=== PATIENT | male | born 1970 | race Caucasian/White ===

== ENCOUNTER → 2020-09-09 18:26 | Outpatient (CLI) | payer OTHER, SELFPAY | PROVIDERS: PCP Internal Medicine Adolescent Medicine; Visit Provider Internal Medicine Adolescent Medicine | DX: Z01.818 Encounter for other preprocedural examination (principal); Z20.822 Contact with and (suspected) exposure to COVID-19 | CPT/HCPCS: U0003 ==

== ENCOUNTER 2024-03-06 14:41 | Outpatient (CLI) | payer OTHER, SELFPAY ==
--- NOTE | 2024-03-06 14:42 | CT_ITS ---
FINAL REPORT TECHNIQUE: Thin section axial CT images of the facial bones and sinuses were obtained without contrast. Coronal and sagittal reformatted images were also obtained. This study was performed with techniques to keep radiation doses as low as reasonably achievable, (ALARA). Individualized dose reduction techniques using automated exposure control or adjustment of mA and/or kV according to the patient's size were employed. CLINICAL HISTORY: sinusitis COMPARISON: None FINDINGS: There is moderate mucosal thickening in the paranasal sinuses. No fluid levels are identified. There is soft tissue obstructing the ostiomeatal units of the maxillary sinuses bilaterally. There is nasal septal deviation to the right with a right septal spur. No fracture or acute bony abnormality is identified. IMPRESSION: Moderate mucosal thickening of the paranasal sinuses without air-fluid levels. Soft tissue obstructs the ostiomeatal units of the maxillary sinus bilaterally. Right septal deviation with a right septal spur. Reviewed, Interpreted and Dictated by Khris Henry III, MD Transcribed by Shikha Weston Authenticated and [facility]
== END 2024-03-06 23:59 | disposition home or self-care (01) ==
LOC: RAD 14:42
PROVIDERS: PCP Family Medicine; Visit Provider Nurse Practitioner
DX: R09.81 Nasal congestion (principal)
CPT/HCPCS: 70486

== ENCOUNTER 2024-06-10 07:41 | Outpatient (CLI) | payer OTHER, SELFPAY ==
--- NOTE | 2024-06-10 | ECG_ITS ---
APPROVED REPORT Exam: Resting ECG HR:67 bpm ECG Measurements Heart Rate 67 AXES MD 167 P 57 QRSd 98 QRS 23 QT 373 T 51 QTc 389 Conclusion SINUS RHYTHM NORMAL ECG UNCONFIRMED REPORT Electronically signed by : Jamison Crowe MD 06/11/2024 10:29:41
--- OUTSIDE RECORDS SUMMARY | 2024-06-10 07:44 | XMS_ITS | Patient Health Record ---
Author Organization [facility] D [facility]LOY[facility] Address [address] [place] [address] Care Team Providers Care Presser Cotton Ginning Name Role Phone Jamison Crowe Primary Care Provider Reason For Referral No Information Medications Medication SIG (Take, Route, Frequency, Duration) Notes Start Date End Date Status albuterol 90 mcg/inh 2 puff(s) inhaled 4 times a day Active Levocetirizine Dihydrochloride 5 mg 1 tab(s) orally once a day (in the evening) for 90 days Active Montelukast Sodium 10 mg 1 tab(s) orally once a day for 90 days Active Immunizations Vaccine Route Administration Date Status Comme nts FLUZONE 6MO - OLDER IM Intramuscular 05/01/2019 Administer ed Boostrix IM Intramuscular 05/01/2019 Administered Adacel (Tdap) Unknown 09/13/2012 Administered Problems Problem Type SNOMED Code ICD Code Onset Dates Problem Status W/U Status Risk Notes Problem 09723487 Chronic allergic rhinitis (J30.9) Active confirmed Problem 118330642 Asthma exacerbation, mild (J45.901) Active confirmed Problem 072790618 Moderate persistent asthma without complication (J45.40) Active confirmed Problem 62496201 High blood pressure (I10) Active confirmed Problem 43273091400789983 Carpal tunnel syndrome on both sides (G56.03) Active confirmed Plan Of Treatment Pending Test Test Name Order Date VENIPUNCT, ROUTINE* 06/07/2015 M-COVID PCR SINGLE RAPID 09/09/2020 Insurance Providers Payer Name Payer Address Payer Phone Subscriber Number Group Number Insured Name Patient Relationship to Insured Coverage Start Date Coverage End Date [facility] [address] [address] [place] [address] [id number] Farhan Castelan Self - patient is the insured Medications Administered Medication Instructions Date of Administration Dosage Notes Kenalog 40mg 01/19/2017 40 mg Triamcinolone Acetonide 40mg Injection 08/07/2019 1 mL Kenalog 02/16/2014 1 Kenalog 08/20/2015 1 mL Medical (General) History Medical History History ICD Code High blood pressure Mild asthma and chronic allergies Surgical History Surgery Date(Month/Year) bone marrow donor 2008 Hospitalization History Reason Date(Month/Year) above
--- OUTSIDE RECORDS SUMMARY | 2024-06-10 07:45 | XMS_ITS | Patient Health Record ---
[facility] Address [address] [place] [address] Care Team Providers Care Rn Managed Care Name Role Phone FLAVIA NUNES [phone] Reason For Referral No Information Medications Medication SIG (Take, Route, Frequency, Duration) Notes Start Date End Date Status Singulair 10 MG Orally Acti ve Xyzal 5 MG Active HYDROcodone-Acetaminophen 5-325 MG 1 tablet as needed Orally every 6 hrs for 7 days 09/14/2020 Active Social History Sex Assigned At : Social History Observation Description Sex Assigned At Male Alcohol: Question Answer Notes How often did you have a dri nk containing alcohol in the past year? 2 to 4 times a month (2 points) [patient portal] How many drinks did you have on a typical day when you were drinking in the past year? 1 or 2 drinks (0 points) [patient portal] How often did you have 6 or more drinks on one occasion in the past year? less than monthly (1 point) [patient portal] Problems Problem Type SNOMED Code ICD Code Onset Dates Problem Status W/U Status Risk Notes Problem Carpal tunnel syndrome (99160466) Carpal tunnel syndrome (354.0) Active confirmed Problem Pain in limb (97488184) Hand pain, right (M79.641) Active confirmed Problem 13363993 Carpal tunnel syndrome, bilateral upper limbs (G56.03) Active confirmed Plan Of Treatment No Information Insurance Providers Payer Name Payer Address Payer Phone Subscriber Number Group Number Insured Name Patient Relationship to Insured Coverage Start Date Coverage End Date [facility] [address] [address] [place] [address] [id number] Carlos Castelan Self - patient is the insured Medical (General) History Medical History History ICD Code Asthma: Yes[patient portal] Surgical History Surgery Date(Month/Year) Eye surgery 2018
[2024-06-10 08:14] LABS: Basophils # 0.1 K/mm3 (0-0.2); Basophils % 1.4 % (0.1-2.0); Eosinophils # 0.3 K/mm3 (0.0-0.4); Eosinophils % 6.6 % (0.1-12.0); Hematocrit 46.5 % (42.0-52.0); Lymphocytes # 1.9 K/mm3 (0.7-4.5); Lymphocytes % 38.3 % (10-50); Mean Corpuscular HGB Conc 34.5 g/dL (31.8-35.4); Mean Corpuscular Hemoglobin 31.2 pg (27.0-31.2); Mean Corpuscular Volume 90.6 fl (80-94); Mean Platelet Volume 7.3 fl (7.4-10.4); Monocytes # 0.3 K/mm3 (0.1-1.0); Monocytes % 6.1 % (1.7-9.3); Neutrophils # 2.4 K/mm3 (1.8-7.8); Neutrophils % 47.6 % (37.0-80.0); Platelet Count 237 K/mm3 (142-424); Red Blood Count 5.13 M/mm3 (4.60-6.20); Red Cell Distribution Width 12.8 % (11.5-17.5)
[2024-06-10 08:43] LABS: Albumin Level 4.4 g/dl (3.5-5.0); Chloride 104 mmol/L (98-107); Potassium 4.3 mmoL/L (3.5-5.1); Sodium 139 mmol/L (136-145)
[2024-06-10 08:46] LABS: Alanine Aminotransferase 25 U/L (12-78); Albumin/Globulin Ratio 1.8 (1.1-1.8); Alkaline Phosphatase 63 U/L (38-126); Anion Gap 13.3 mEq/L (5-15); Aspartate Amino Transferase 28 U/L (17-59); Bilirubin,Total 0.6 mg/dl (0.2-1.3); Blood Urea Nitrogen 16 mg/dl (9-20); Carbon Dioxide 26 mmol/L (22.0-30.0); Estimated Glomerular Filt Rate 88 ml/min (>60); GFR (African American) 106 ML/MIN (>60); Globulin 2.4 g/dL (1.3-3.2); Total Protein,Serum 6.8 g/dl (6.3-8.2)
[2024-06-10 08:47] LABS: Calcium 9.5 mg/dl (8.4-10.2); Glucose 111 mg/dl (74-100)
== END 2024-06-10 23:59 | disposition home or self-care (01) ==
LOC: LAB 07:42
PROVIDERS: PCP Family Medicine; Visit Provider Otolaryngology
DX: Z01.812 Encounter for preprocedural laboratory examination (principal); Z01.818 Encounter for other preprocedural examination
CPT/HCPCS: 36415; 80053; 85025; 93005